=== PATIENT | male | born 1965 | race Hispanic/Latino ===

== ENCOUNTER 2020-06-22 08:42 | Emergency (ER) | payer OTHER, SELFPAY ==
[2020-06-22 15:54] LABS: SARS-CoV-2 PCR by NAA Not Detected (NotDetected)
== END 2020-06-22 09:15 | disposition home or self-care (01) ==
LOC: CSHERS 08:42
DX: M79.10 Myalgia, unspecified site (principal); R09.81 Nasal congestion; R05 Cough; R19.7 Diarrhea, unspecified; Z20.822 Contact with and (suspected) exposure to COVID-19; E11.9 Type 2 diabetes mellitus without complications; E78.5 Hyperlipidemia, unspecified; E78.00 Pure hypercholesterolemia, unspecified; I10 Essential (primary) hypertension
CPT/HCPCS: 87635; 99284; U0003; U0005